=== PATIENT | male | born 1965 | race Two or more races ===

== ENCOUNTER 2025-08-08 21:02 | Emergency (ER) | payer BC, OTHER ==
[~2025-08-08] VITALS: Ht 175.3 cm; Wt 138.0 kg
--- NOTE | 2025-08-08 21:25 | ED.PDOC ---
History of Present Illness(SKN HPI Comments 59-year-old male who came to ER via EMS for wound check. 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 Earlier today patient sneezed, and he noted clear to reddish discharge seeping out of incision site at his left lower leg. Patient currently taking Xarelto. Chief Complaint: Wound Check Time Seen by MD: 21:25 History of Present Illness: Osteopathic Resident Notes Information Source: Patient, Emergency Med Personnel Mode of Arrival: EMS Severity: Moderate Timing: Hours Duration: Since onset Location: Leg Past Medical History PAST MEDICAL HISTORY: Denies Surgical History: Denies all surgeries Surgical History (Other): Cadaver artery transplant Family History Family History: Reviewed,noncontributory to illness Social History Smoker: Non-Smoker Alcohol: Denies ETOH Use Drugs: Denies Drug Use Lives In: Home Constitutional: denies: chills, diaphoresis, fatigue, fever, malaise, sweats, weakness, others EENTM: denies: blurred vision, double vision, ear bleeding, ear discharge, ear drainage, ear pain, ear ringing, eye pain, eye redness, hearing loss, mouth pain, mouth swelling, nasal discharge, nose bleeding, nose congestion, nose pain, photophobia, tearing, throat pain, throat swelling, voice changes, others Respiratory: denies: cough, hemoptysis, orthopnea, SOB at rest, shortness of breath, SOB with excertion, stridor, wheezing, others Cardiovascular: denies: chest pain, dizzy spells, diaphoresis, Dyspnea on exertion, edema, irregular heart beat, left arm pain, lightheadedness, palpitations, PND, syncope, others Gastrointestinal: denies: abdomen distended, abdominal pain, blood streaked bowels, constipated, diarrhea, dysphagia, difficulty swallowing, hematemesis, melena, nausea, poor appetite, poor fluid intake, rectal bleeding, rectal pain, vomiting, others Genitourinary: denies: burning, dysuria, flank pain, frequency, hematuria, incontinence, penile discharge, penile sore, pain, testicle pain, testicle swelling, urgency, others Neurological: denies: dizziness, fainting, headache, left sided numbness, left sided weakness, numbness, paresthesia, pre-existing deficit, right sided numbness, right sided weakness, seizure, speech problems, tingling, tremors, weakness, others Musculoskeletal: denies: back pain, gout, joint pain, joint swelling, muscle pain, muscle stiffness, neck pain, others Integumetry: reports: wounds (Left lower leg); denies: bruises, change in color, change in hair/nails, dryness, laceration, lesions, lumps, rash, others Allergic/Immunocompromised: denies: Difficulty Healing, Frequent Infections, Hives, Itching, others Hematologic/Lymphatic: denies: anemia, blood clots, easy bleeding, easy bruising, swollen glands, others Endocrine: denies: excessive hunger, excessive sweating, excessive thirst, excessive urination, flushing, intolerance to cold, intolerance to heat, unexplained weight gain, unexplained weight loss, others Psychiatric: denies: anxiety, bipolar disorder, depression, hopeless, panic disorder, schizophrenia, sleepless, suicidal, others Physical Exam General Appearance: No Apparent Distress, Normal HEENT: Normal ENT Inspection, Pharynx Normal, TMs Normal Neck: Full Range of Motion, Non-Tender, Normal, Normal Inspection Respiratory: Chest Non-Tender, Lungs Clear, No Accessory Muscle Use, No Respiratory Distress, Normal Breath Sounds Cardiovascular: No Edema, No JVD, No Murmur, No Gallop, Normal Peripheral Pulses, Regular Rate/Rhythm Breast Exam: Deferred Gastrointestinal: No Organomegaly, Non Tender, No Pulsatile Mass, Normal Bowel Sounds, Soft Genitalia: Deferred Pelvic: Deferred Rectal: Deferred Extremities: No calf tenderness, Normal capillary refill, Normal inspection, Normal range of motion, Non-tender, No pedal edema Musculoskeletal : Apperance: Normal Neurologic: Alert, fastener technologist II-XII nml as Tested, No Motor Deficits, Normal Affect, Normal Mood, No Sensory Deficits Cerebellar Function: Normal Reflexes: Normal Skin: Dry, Normal Color, Warm, Wounds (Left lower leg) Lymphatic: No Adenopathy Was a procedure done? Was a procedure done?: No Differential Diagnosis (INTG) Abscess: Bacteremia, Cellulitis, Gas Gangrene Differential Diagnosis: Cellulitis X-Ray, Labs, Meds, VS Vital Signs Date Time Temp Pulse Resp B/P (MAP) Pulse Ox O2 Delivery O2 Flow Rate FiO2 08/08/25 23:38 78 18 140/86 10/17/25 23:20 98.9 81 20 109/71 (84) 94 98.9 08/08/25 23:08 81 20 109/71 08/08/25 23:00 98 Room Air* 0 21 08/08/25 21:13 99.1 70 18 138/76 96 99.1 Lab Test 08/08/25 21:40 Range/Units White Blood Count 7.6 4.4-10.8 10^3/uL Red Blood Count 4.37 L 4.5-5.90 10^6/uL Hemoglobin 13.0 L 13.5-17.5 g/dL Hematocrit 38.5 L 41.0-53.0 % Mean Corpuscular Volume 88.1 80.0-100.0 fL Mean Corpuscular Hemoglobin 29.8 28.0-32.0 pg Mean Corpuscular Hemoglobin Concent 33.9 32.0-36.0 g/dL Red Cell Distribution Width 14.5 H 11.8-14.3 % Platelet Count 249 140-450 10^3/uL Mean Platelet Volume 9.0 6.9-10.8 fL Neutrophils (%) (Auto) 66.0 37.0-80.0 % Lymphocytes (%) (Auto) 19.6 10.0-50.0 % Monocytes (%) (Auto) 12.6 H 0.0-12.0 % Eosinophils (%) (Auto) 1.4 0.0-7.0 % Basophils (%) (Auto) 0.4 0.0-2.0 % Neutrophils # (Auto) 5.0 1.6-8.6 10 ^3/uL Lymphocytes # (Auto) 1.5 0.4-5.4 10 ^3/uL Monocytes # (Auto) 1.0 0-1.3 10 ^3/uL Eosinophils # (Auto) 0.1 0-0.8 10 ^3/uL Basophils # (Auto) 0 0-0.2 10 ^3/uL Nucleated Red Blood Cells 0.0 % Prothrombin Time 10.5 9.3-11.8 sec Prothrombin Time INR 0.99 0.9-1.15 Activated Partial Thromboplast Time 26.3 24.5-34.5 SEC Sodium Level 141 136-145 mmol/L Potassium Level 3.9 3.5-5.1 mmol/L Chloride Level 102 98-107 mmol/L Carbon Dioxide Level 29 20-31 mmol/L Anion Gap 10 5-15 Blood Urea Nitrogen 15 9-23 mg/dL Creatinine 0.89 0.700-1.30 mg/dL Glomerular Filtration Rate Calc 100 >90 mL/min BUN/Creatinine Ratio 16.9 10.0-20.0 Serum Glucose 115 H 74-106 mg/dL Calcium Level 9.3 8.7-10.4 mg/dL Total Bilirubin 0.5 0.2-1.0 mg/dL Aspartate Amino Transferase (AST) 42 H 13-40 U/L Alanine Aminotransferase (ALT) 81 H 7-40 U/L Alkaline Phosphatase 296 H 46-116 U/L Total Protein 7.6 5.7-8.2 g/dL Albumin 4.7 3.2-4.8 g/dL Current Medications Medications (Trade) Dose Ordered Sig/Ruth Route Start Time Stop Time Status Last Admin Ondansetron HCl (Zofran) 4 mg ONCE ONCE IV 08/08/25 21:30 08/08/25 21:31 DC 08/08/25 23:20 Hydromorphone HCl (Dilaudid Injection) 1 mg ONCE ONCE IV 08/08/25 21:30 08/08/25 21:31 DC 08/08/25 23:08 Left lower extremity venous duplex Clinical History: pain and bleeding after vascular surgery Comparison: US LT LOW EXT ART DUPLEX on DOS: 08/09/25 Technique: Duplex Doppler evaluation of the deep venous system of the left lower extremity from the common femoral vein to the popliteal vein including color Doppler and spectral/pulsed waveform analysis was performed. Findings: The common femoral vein demonstrates appropriate compressibility and waveform variability. There is compressibility/patency of the great saphenous vein at the proximal thigh. The femoral vein demonstrates appropriate compressibility and waveform variability. The deep femoral vein demonstrates appropriate compressibility and waveform variability. Suspected occlusive thrombus within the popliteal vein. There is normal compressibility at the tibioperoneal trunk. Impression: Occlusive thrombus within the popliteal vein. Time of 1ST Reevaluation: 21:20 Reevaluation 1ST: Unchanged Patient Education/Counseling: Diagnosis, Treatment Family Education/Counseling: No Family Present SEPSIS Sepsis Screen Physician Orders Lt Lower Dvt (08/08/25 21:18) Imaging Transfer Request (08/08/25 23:12) Vital Signs Date Time Temp Pulse Resp B/P (MAP) Pulse Ox O2 Delivery O2 Flow Rate FiO2 08/08/25 23:38 78 18 140/86 08/08/25 23:20 98.9 81 20 109/71 (84) 94 98.9 08/08/25 23:08 81 20 109/71 08/08/25 23:00 98 Room Air* 0 21 08/08/25 21:13 99.1 70 18 138/76 96 99.1 Laboratory Tests Test 08/08/25 21:40 White Blood Count 7.6 10^3/uL (4.4-10.8) Medications Medications Dose Ordered Sig/Ruth Route Start Time Stop Time Status Last Admin Dose Admin Hydromorphone HCl 1 mg ONCE ONCE IV 08/08/25 21:30 08/08/25 21:31 DC 08/08/25 23:08 Ondansetron HCl 4 mg ONCE ONCE IV 08/08/25 21:30 08/08/25 21:31 DC 08/08/25 23:20 Departure 1 Departure Time of Disposition: 23:00 Impression: Primary Impression: Peripheral vascular complication of surgical procedure Disposition: 07 LEFT AGAINST MEDICAL ADVICE (We contacted [facility] and they did accept the patient but we are going to hold him overnight and transfer him in the morning so the patient left AMA. Risks explained including potential and disability inpatient expressed understanding and will sign out against medical advice) Admit to: Med Surg Condition: Guarded Discharged With: Self Critical Care Note Critical Care Time?: No Stability Stability form required: No Heart Score Heart Score: Heart Score Response (Comments) Value History N/A 0 EKG N/A 0 Age N/A 0 Risk Factors N/A 0 Troponin N/A 0 Total 0 I personally scribed for GIANCARLO WILSON MD ([email or web address]) on 08/08/25 at 21:25. Electronically submitted by Wero Sandoval ([facility]). I personally scribed for GIANCARLO WILSON MD ([email or web address]) on 08/09/25 at 01:11. Electronically submitted by Wero Sandoval ([employer]). GIANCARLO WILSON MD Aug 08, 2025 21:25
[2025-08-08 21:59] LABS: Hematocrit 38.5 % (41.0-53.0); Hemoglobin 13.0 g/dL (13.5-17.5); Mean Corpuscular Hemoglobin 29.8 pg (28.0-32.0); Mean Corpuscular Volume 88.1 fL (80.0-100.0); Nucleated Red Blood Cells % 0.0 %
[2025-08-08 22:12] LABS: INR 0.99 (0.9-1.15); Partial Thromboplastin Time 26.3 SEC (24.5-34.5); Prothrombin Time 10.5 sec (9.3-11.8)
[2025-08-08 22:19] LABS: Albumin 4.7 g/dL (3.2-4.8); Anion Gap 10 (5-15); BUN/Creatinine Ratio 16.9 (10.0-20.0); Blood Urea Nitrogen 15 mg/dL (9-23); Calcium 9.3 mg/dL (8.7-10.4); Carbon Dioxide 29 mmol/L (20-31); Chloride 102 mmol/L (98-107); Potassium 3.9 mmol/L (3.5-5.1); Sodium 141 mmol/L (136-145); Total Protein 7.6 g/dL (5.7-8.2)
[2025-08-08 22:20] LABS: Alanine Aminotransferase 81 U/L (7-40); Alkaline Phosphatase 296 U/L (46-116); Bilirubin, Total 0.5 mg/dL (0.2-1.0); Glucose 115 mg/dL (74-106)
--- NOTE | 2025-08-08 22:42 | DVH ---
Left lower extremity venous duplex Clinical History: pain and bleeding after vascular surgery Comparison: US LT LOW EXT ART DUPLEX on DOS: 08/09/25 Technique: Duplex Doppler evaluation of the deep venous system of the left lower extremity from the common femor al vein to the popliteal vein including color Doppler and spectral/pulsed waveform analysis was perfo rmed. Findings: The common femoral vein demonstrates appropriate compressibility and waveform variability. There is compressibility/patency of the great saphenous vein at the proximal thigh. The femoral vein demonstrates appropriate compressibility and waveform variability. The deep femoral vein demonstrates appropriate compressibility and waveform variability. Suspected occlusive thrombus within the popliteal vein. There is normal compressibility at the tibioperoneal trunk. Impression: Occlusive thrombus within the popliteal vein.
[2025-08-08 23:00] VITALS: O2SAT 98
[2025-08-08] MEDS: HYDROmorphone HCL 2 MG/ML VL/or syr IV ONE (23:08)
[2025-08-08 23:20] VITALS: TEMP 98.9; O2SAT 94
[2025-08-08] MEDS: ONDANSETRON HCL 4 MG/2 ML VIAL IV ONE (23:20)
[2025-08-08 23:38] VITALS: BP 140/86; PULSE 78; RESP 18
== END 2025-08-09 00:46 | disposition left against medical advice (07) ==
LOC: EDBD 21:02 → ER 21:02
DX: I99.8 Other disorder of circulatory system (principal)
CPT/HCPCS: 36415; 80053; 85025; 85610; 85730; 93971; 96374; 96375; 99285; J1171; J2405